=== PATIENT | male | born 1990 | race African-American/Black ===

== ENCOUNTER 2018-02-11 22:32 | Emergency (ER) | payer OTHER ==
[~2018-02-11] VITALS: Ht 195.6 cm; Wt 103.4 kg
[2018-02-11 22:36] VITALS: Ht 195.6 cm; Wt 103.4 kg
[2018-02-11 23:57] VITALS: BP 137/79
== END 2018-02-11 23:57 | disposition home or self-care (01) ==
LOC: ED 22:32
PROC: 08C9XZZ Extirpation of Matter from Left Cornea, External Approach (ICD-10-PCS; principal; 2018-02-11)
PROC: 3E0234Z Introduction of Serum, Toxoid and Vaccine into Muscle, Percutaneous Approach (ICD-10-PCS; 2018-02-11)
DX: T15.02XA Foreign body in cornea, left eye, initial encounter (principal); X58.XXXA Exposure to other specified factors, initial encounter; Y92.9 Unspecified place or not applicable
CPT/HCPCS: 90715